=== PATIENT | female | born 1975 | race Caucasian/White ===

== ENCOUNTER → 2017-03-04 | Outpatient (CLI) | payer BC ==
[~2017-03-04] MED LIST: AMBIEN10 MG DOB; AMBIEN12.5 M1 PO; BACTRIM DS TABL1 TA1; BACTRIM DS TABL1 TA1 PO; COLESTID PO; CYMBALTA PO; GEODON80 MG PO; IBUPROFEN800 MG PO; LEVOXYL175 MC1 PO; LYRICA PO; LYRICA100 MG PO; NAPROSYN-EC500 M1 PO; PHENERGAN25 MG PO; PROPRANOLOL PO; PYRIDIUM; SYNTHROID175 MCG PO; TIZANIDINE HCL2 MG PO; TIZANIDINE HCL4 M1 PO; VOLTAREN75 MG PO; ZANAFLEX4 M1 PO; ZOFRAN
--- NOTE | ~2017-03-04 | US128 ---
[id number] [address] [address] [id number] O MR#: [id number] Acc #: [id number] NAME: MAGDIEL LAURENT : 1975 SEX: F STUDY DATE/TIME: 03/04/2017 16:25 UNIT: [facility] ROOM: STUDY DESCRIPTION: Thyroid Attending Physician: Ilan oL M.D. Referring Physician: Ilan Lo M.D. Ordering Physician: Ilan Lo M.D. Primary Care Physician: Ilan Lo M.D. MEDICAL IMAGING REPORT This report is preliminary unless electronic signature is present. EXAM Thyroid sonogram HISTORY Hypothyroidism for the past 16 years. Patient on thyroid medication during that time. TECHNIQUE Ultrasound evaluation was performed with monsivais-scale and color-flow imaging. FINDINGS The thyroid gland demonstrates atrophy. The right lobe measures 0.6 x 0.8 x 2.1 cm and the left lobe measures 0.9 x 0.6 x 1.4 cm. There is a 2 mm nodule in the left thyroid lobe. No suspicious thyroid masses are seen. IMPRESSION Severe thyroid atrophy. Dictated by... Cruz Dick M.D. THIS IS AN ELECTRONICALLY VERIFIED REPORT Cruz Dick M.D. at 03/07/2017 5:23 PM MERCEDEZ/gael TD: 03/04/2017 21:46 JOB #: [id number] MEDICAL IMAGING REPORT Page 1 of 1
== END | disposition home or self-care (01) ==
LOC: SGUS 14:52
DX: E03.9 Hypothyroidism, unspecified (principal); E03.4 Atrophy of thyroid (acquired)
CPT/HCPCS: 76536